=== PATIENT | female | born 1995 ===

== ENCOUNTER 2017-01-07 10:10 | Outpatient (CLI) | payer MEDICAID ==
[~2017-01-07 10:10] MED LIST: FEOSOL-DPS325 MG PO; MOTRIN-DPS800 MG PO; NIPPLECREAM TP; PRENATAL VIT1 TAB PO; TYLENOL #3 DPS1 TAB PO
[2017-03-14] MEDS ORDERED: PRENATAL VIT1 TAB PO (16:28)
[2017-03-14] MEDS ORDERED: MOTRIN-DPS800 MG PO (16:29)
[2017-03-14] MEDS ORDERED: IRON325 M1 PO (16:29)
[2017-03-14] MEDS ORDERED: TYLENOL EXTRA500 M1 PO (16:30)
[2017-03-14] MEDS ORDERED: COLACE-DPS100 MG PO (16:30)
[2017-03-14] MEDS ORDERED: NIPPLECREAM TP (16:31)
[2017-03-14] MEDS ORDERED: AKWA TEARS OIN3.5 GM TP (16:31)
[2017-03-14] MEDS ORDERED: TUCKS1 EACH TP (16:32)
== END 2017-01-07 11:12 | disposition home or self-care (01) ==
LOC: BC 10:10 → 2LDRP 10:10 → BC 11:12
DX: O47.03 False labor before 37 completed weeks of gestation, third trimester (principal); Z3A.31 31 weeks gestation of pregnancy

== ENCOUNTER 2017-02-20 22:00 | Outpatient (CLI) | payer MEDICAID, BC ==
[2017-03-14] MEDS ORDERED: PRENATAL VIT1 TAB PO (16:28)
[2017-03-14] MEDS ORDERED: MOTRIN-DPS800 MG PO (16:29)
[2017-03-14] MEDS ORDERED: IRON325 M1 PO (16:29)
[2017-03-14] MEDS ORDERED: TYLENOL EXTRA500 M1 PO (16:30)
[2017-03-14] MEDS ORDERED: COLACE-DPS100 MG PO (16:30)
[2017-03-14] MEDS ORDERED: NIPPLECREAM TP (16:31)
[2017-03-14] MEDS ORDERED: AKWA TEARS OIN3.5 GM TP (16:31)
[2017-03-14] MEDS ORDERED: TUCKS1 EACH TP (16:32)
== END 2017-02-20 23:45 | disposition home or self-care (01) ==
LOC: 2LDRP 22:00 → BC 22:00
DX: O47.03 False labor before 37 completed weeks of gestation, third trimester (principal); Z3A.36 36 weeks gestation of pregnancy